=== PATIENT | female | born 1995 | race Caucasian/White ===

== ENCOUNTER 2016-10-26 18:27 | Emergency (ER) ==
[2016-10-26 18:32] VITALS: BP 117/81; TEMP 99.6; BMI 32.8
[2016-10-26] MEDS ORDERED: SODIUM CHLORIDE 1,000 ML IV STA ×2 (18:50)
[2016-10-26] MEDS ORDERED: DEMEROL 25 MG/ML SYRINGE IVP STA (18:50)
[2016-10-26] MEDS ORDERED: ZOFRAN 4 MG/2 ML IVP STA (18:50)
[2016-10-26 19:07] LABS: BASOPHILS % (AUTO) 0.2 % (0.0-3.0); EOSINOPHILS % (AUTO) 0.3 % (0.0-7.0); HEMATOCRIT 44.2 % (37.0-47.0); HEMOGLOBIN 15.1 g/dl (12.0-16.0); IMMATURE GRANULOCYTE % (AUTO) 0.2 % (0.0-5.0); LYMPHOCYTES # (AUTO) 0.8 K/uL (0.60-3.4); LYMPHOCYTES % (AUTO) 7.3 (10.0-50.0); MEAN CORPUSCULAR HEMOGLOBIN 32.3 pg (27.0-31.0); MEAN CORPUSCULAR HGB CONC 34.2 (31.8-35.4); MEAN CORPUSCULAR VOLUME 94.4 fl (81.0-99.0); MONOCYTES # (AUTO) 0.5 K/uL (0.4-2.0); MONOCYTES % (AUTO) 4.8 (0-10); NEUTROPHILS # (AUTO) 8.9 K/ul (2.0-6.9); NEUTROPHILS % (AUTO) 87.2; PLATELET COUNT 273 10^3/uL (140-440); RED BLOOD COUNT 4.68 10^6/ul (4.20-5.40); WHITE BLOOD COUNT 10.25 K/ul (4.6-10.2)
[2016-10-26 19:22] LABS: ADD URINE MICROSCOPIC YES; BILIRUBIN,URINE 1+ (NEGATIVE); KETONES,URINE 1+ (NEGATIVE); LEUKOCYTE ESTERASE ,URINE Negative (NEGATIVE); NITRITE,URINE Negative (NEGATIVE); PROTEIN,URINE 1+ (NEGATIVE); URINE, BLOOD Trace-intact (NEGATIVE)
[2016-10-26 19:26] LABS: ALBUMIN 4.3 g/dL (3.4-5.0); ALBUMIN/GLOBULIN RATIO 1.3; ANION GAP 14.6; BILIRUBIN,TOTAL 1.1 mg/dL (0.00-1.20); BUN/CREATININE RATIO 13.41; CALCIUM 9.5 mg/dL (8.2-10.2); CREATININE 0.82 mg/dL (0.60-1.30); POTASSIUM 3.6 mmol/L (3.5-5.10); SERUM PREGNANCY INTERNAL QC INTERNAL QC VALID; TOTAL PROTEIN 7.6 g/dL (6.4-8.2)
--- NOTE | 2016-10-26 19:54 | CT ---
EXAM: CT of the abdomen and pelvis without contrast. HISTORY: Vomiting and diarrhea. PROCEDURE: Contiguous axial CT images of the abdomen and pelvis without contrast with coronal and s agittal reformats. FINDINGS: The liver is normal in appearance. The gallbladder is within normal limits in size. Ther e is sludge in the gallbladder. The pancreas, spleen, adrenal glands and kidneys are normal in appe arance. The abdominal aorta is normal in appearance. The visualized loops of bowel and appendix are normal in appearance. No free fluid or free air in the abdomen or pelvis. The bladder is decompres sed which limits the evaluation. Uterus is unremarkable. The bones and soft tissues are unremarkabl e. Impression: Gallbladder sludge as described.
--- NOTE | 2016-10-26 20:01 | ED.PDOC ---
General ED Provider: Dr. APPEL MARTINEZ-ER Chief Complaint: Nausea/Vomiting Stated Complaint: me and my friend ate at [employer] last night --we are both ill now Time Seen by Physician: 18:30 Mode of Arrival: Walk-In Information Source: Patient Exam Limitations: No limitations Nursing and Triage Documentation Reviewed and Agree: Yes GI Complaint Exam - Vomiting/Diarrhea Complaint/Exam Onset/Duration: several hours Symptoms Are: Still present Episodes of Vomiting over last 24 Hours: 6 Episodes of Diarrhea Over Last 24 Hours: 9 Initial Severity: Mild Current Severity: Mild Character of Vomiting: Reports: Non-bilious Character of Diarrhea: Reports: Watery Aggravating: Reports: None Associated Signs and Symptoms: Reports: Abdominal pain, Cramping. Denies: Dizziness, Light-headedness, Melena, Hematemesis, Fever Menses: Regular Recent Positive Test: No Surgical Obstruction Risk Factors: Reports: None Related Surgical History: Reports: None Kussmaul Respirations Present: No Differential Diagnoses: Dehydration, Viral Gastroenteritis, Bacterial Gastroenteritis, , UTI Review of Systems - Review Of Systems Constitutional: Reports: No symptoms Eyes: Reports: No symptoms Ears, Nose, Mouth, Throat: Reports: No symptoms Respiratory: Reports: No symptoms Cardiac: Reports: No symptoms GI: Reports: Abdominal pain, Diarrhea, Nausea, Poor appetite : Reports: No symptoms Musculoskeletal: Reports: No symptoms Skin: Reports: No symptoms Neurological: Reports: No symptoms Endocrine: Reports: No symptoms Hematologic/Lymphatic: Reports: No symptoms All Other Systems: Reviewed and Negative Past Medical History - Past Medical History Previously Healthy: Yes Endocrine: Reports: Unknown Cardiovascular: Reports: Unknown Respiratory: Reports: Unknown Hematological: Reports: Unknown Gastrointestinal: Reports: Unknown Genitourinary: Reports: Unknown Neuro/Psych: Reports: Unknown Musculoskeletal: Reports: Unknown Cancer: Reports: Unknown Last Menstrual Period: 2 weeks ago - Surgical History General Surgical History: Reports: Unknown - Family History Family History: Reports: Unknown - Social History Smoking Status: Current every day smoker, Light tobacco smoker Hx Substance Use: No Alcohol Screening: Occasionally Lives: With family Physical Exam - Physical Exam Appearance: Well-appearing, No pain distress, Well-nourished Eyes: [place], EOMI, Conjunctiva clear ENT: Ears normal, Nose normal, Oropharynx normal Neck: Supple Respiratory: Airway patent, Breath sounds clear, Breath sounds equal, Respirations nonlabored Cardiovascular: RRR, Pulses normal, No rub, No murmur GI/: Soft Musculoskeletal: Normal strength Skin: Warm, Dry, Normal color Neurological: Sensation intact, Motor intact, Reflexes intact, Cranial nerves intact, Alert, Oriented Psychiatric: Affect appropriate, Mood appropriate Interpretation - Radiology Interpretation Radiology Interpretation By: Radiologist Radiology Results: Negative Exam Interpreted: CT Scan Re-Evaluation - Re-Evaluation Time of Re-Evaluation: 20:01 Status: Improved Vital Signs Stable: Yes Pain Level: 0 Appearance: NAD Lungs: Clear Skin: Warm and Dry Neuro: Alert and Oriented X3 CV: RRR Critical Care Note - Critical Care Note Total Time (mins): 0 Course - Course Hematology/Chemistry: 10/26/16 19:00 10/26/16 19:00 Orders, Labs, Meds: Lab Review 10/26/16 19:00 WBC 10.25 H RBC 4.68 Hgb 15.1 Hct 44.2 MCV 94.4 MCH 32.3 H MCHC 34.2 RDW Coeff of Alyssa 12.3 Plt Count 273 Immature Gran % (Auto) 0.2 Neut % (Auto) 87.2 Lymph % (Auto) 7.3 L [place] % (Auto) 4.8 Eos % (Auto) 0.3 Baso % (Auto) 0.2 Immature Gran # (Auto) 0.0 Neut # 8.9 H Lymph # 0.8 [place] # 0.5 Eos # 0.0 Baso # 0.0 Sodium 138 Potassium 3.6 Chloride 103 Carbon Dioxide 24 Anion Gap 14.6 BUN 11 Creatinine 0.82 Estimated GFR (MDRD) 87.00 BUN/Creatinine Ratio 13.41 Glucose 96 Calcium 9.5 Total Bilirubin 1.10 AST 16 ALT 21 Alkaline Phosphatase 96 Total Protein 7.6 Albumin 4.3 Globulin 3.3 Albumin/Globulin Ratio 1.30 Amylase 54 Lipase 15 Serum , Qual Negative Urine Color Yellow Urine Clarity Clear Urine pH 6.0 Ur Specific [place] 1.025 Urine Protein 1+ Urine Glucose (UA) Negative Urine Ketones 1+ Urine Blood Trace-intact Urine Nitrite Negative Urine Bilirubin 1+ Urine Urobilinogen 0.2 Ur Leukocyte Esterase Negative Urine Microscopic RBC 2-5 Ur Squamous Epith Cells 5-10 Calcium Oxalate Crystal 1+ Amorphous Sediment 1+ Orders Category Date Time Status ED IV/MEDIPORT/POWERPORT .ONCE EMERGENCY 10/26/16 18:50 Active AMYLASE Stat LAB 10/26/16 19:00 Completed CBC W/ AUTO DIFF Stat LAB 10/26/16 19:00 Completed COMPREHENSIVE METABOLIC PANEL Stat LAB 10/26/16 19:00 Completed LIPASE Stat LAB 10/26/16 19:00 Completed MOLECULAR GROUP A STREP Stat LAB 10/26/16 19:00 Results SERUM Stat LAB 10/26/16 19:00 Completed STREP SCREEN Stat LAB 10/26/16 19:00 Results URINALYSIS C & S IF INDICATED Stat LAB 10/26/16 19:00 Completed 0.9 % Sodium Chloride [Saline Flush] MEDS 10/26/16 18:50 Ordered 1 syr IVF PRN PRN Meperidine HCl/Pf [Demerol 25 mg/ml Syringe] MEDS 10/26/16 18:50 Discontinued 25 mg IVP ONCE STA Ondansetron HCl/Pf [Zofran 4 mg/2 ml] MEDS 10/26/16 18:50 Discontinued 4 mg IVP ONCE STA Sodium Chloride 0.9% [Sodium Chloride] 1,000 ml MEDS 10/26/16 18:50 Discontinued IV BOLUS Sodium Chloride 0.9% [Sodium Chloride] 1,000 ml MEDS 10/26/16 18:[address] ABDOMEN/PELVIS WO CONTRAST Stat RADS 10/26/16 18:51 Completed Medications Generic Name Dose Route Start Last Admin Trade Name Freq PRN Reason Stop Dose Admin Sodium Chloride 1 syr 10/26/16 18:50 10/26/16 19:07 Saline Flush IVF 1 syr PRN PRN Administration To flush IV Discontinued Medications Generic Name Dose Route Start Last Admin Trade Name Freq PRN Reason Stop Dose Admin Sodium Chloride 1,000 mls @ 1,200 mls/hr 10/26/16 18:50 10/26/16 19:07 Sodium Chloride IV 10/26/16 19:39 1,200 mls/hr BOLUS STA Administration Sodium Chloride 1,000 mls @ 1,000 mls/hr 10/26/16 18:50 Sodium Chloride IV 10/26/16 19:49 BOLUS STA Meperidine HCl 25 mg 10/26/16 18:50 10/26/16 19:11 Demerol 25 Mg/Ml Syringe IVP 10/26/16 18:51 25 mg ONCE STA Administration Ondansetron HCl 4 mg 10/26/16 18:50 10/26/16 19:10 Zofran 4 Mg/2 Ml IVP 10/26/16 18:51 4 mg ONCE STA Administration Vital Signs: Temp Pulse Resp BP Pulse Ox 10/26/16 18:28 99.6 F 126 H 20 117/81 97 Departure - Departure Time of Disposition: 20:01 Disposition: HOME SELF-CARE Discharge Problem: Enteritis Instructions: Enteritis (ED) Condition: Good Pt referred to PMD for follow-up: Yes Additional Instructions: clear liquids x 24hrs and advnce to dairy free x 3 days=--cipro 500mg bid x 7days--zofran 4mg q 4hrs prn #4--f/u wtih pcp Allergies/Adverse Reactions: Allergies hydromorphone [From Dilaudid] Adverse Reaction (Verified 10/26/16 18:32) Hives Home Medications: Ambulatory Orders 1 [No Reported Medications] 10/26/16 Disposition Discussed With: Patient
== END 2016-10-26 21:07 | disposition home or self-care (01) ==
LOC: ED 18:27
DX: K52.9 Noninfective gastroenteritis and colitis, unspecified (principal); F17.210 Nicotine dependence, cigarettes, uncomplicated
CPT/HCPCS: 36415; 80053; 81001; 82150; 83690; 84703; 85025; 87651; 87880; 96361; 96374; 96375; 99283